=== PATIENT | female | born 1945 | race Caucasian/White ===

== ENCOUNTER 2019-12-27 11:36 | Outpatient (CLI) | payer MEDICARE, OTHER ==
--- NOTE | 2019-12-27 14:14 | DEXA Report ---
PROCEDURE: Dexa Spine and/or Hip INDICATIONS: OSTEOPOROSIS TECHNIQUE: Dual energy x-ray absorptiometry (DXA) was performed on a R17 System. Regions measur ed are the AP Spine, femoral neck, and if needed forearm. COMPARISON: None. FINDINGS: Lumbar Spine: Bone Mineral Density 0.986 g/cm/cm,T score -1.6. Left Hip: Bone Mineral Density 0.895 g/cm/cm,T score -0.9. Left Femoral Neck: Bone Mineral Density 0.783 g/cm/cm, T score -1.8. Impression: Osteopenia of the lumbar spine and left femoral neck. Patients with diagnosis of osteoporosis or osteopenia should have regular bone mineral density assess ment. For those eligible for Medicare, routine testing is allowed once every 2 years. Testing frequ ency can be increased for patients who have rapidly progressing disease or for those who are receivin g medical therapy to restore bone mass. Reviewed by: Teresita Genao MD on 12/27/2019 2:13 PM PDT Approved by: Teresita Genao MD on 12/27/2019 2:13 PM PDT Station ID: [id number]
== END 2019-12-27 11:37 | disposition home or self-care (01) ==
LOC: DI 11:36
PROVIDERS: ATTEND Internal Medicine
DX: M85.89 Other specified disorders of bone density and structure, multiple sites (principal)
CPT/HCPCS: 77080

== ENCOUNTER 2023-12-20 17:27 | Outpatient (CLI) | payer MEDICARE, OTHER ==
--- NOTE | 2023-12-20 21:52 | XRAY Report ---
PROCEDURE: Clavicle RT INDICATIONS: PAIN OF RIGHT SHOULDER JOINT TECHNIQUE: 2 views of the clavicle were acquired. COMPARISON: None. FINDINGS: Bones: No acute fractures or dislocations. No suspicious bony lesions. Severe glenohumeral osteoa rthrosis. Mild to moderate acromioclavicular joint osteoarthrosis. Soft tissues: No suspicious soft tissue calcifications. Surgical clips are seen in the right axill a. 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 Reviewed by: Loyd Escamilla MD on 12/20/2023 8:50 PM [facility] Approved by: Loyd Escamilla MD on 12/20/2023 8:50 PM [facility] Station ID: [id number]
--- NOTE | 2023-12-21 11:35 | XRAY Report ---
Shoulder 2+V RT HISTORY: 78 years of age, PAIN OF RIGHT SHOULDER JOINT TECHNIQUE: Shoulder 2+V RT COMPARISON: None. FINDINGS/IMPRESSION: The acromioclavicular joint is unremarkable. Small ossification about the superior glenoid, represent ing prior injury. Moderate degenerative changes of the glenohumeral joint with joint space narrowing. No acute fracture or dislocation. Extensive surgical clips project over the right axilla. Reviewed by: Kacy Landon MD on 12/21/2023 11:33 AM PDT Approved by: Kacy Landon MD on 12/21/2023 11:33 AM PDT Station ID: [id number]
--- NOTE | 2023-12-21 16:11 | XRAY Report ---
PROCEDURE: Cervical Spine 2-3V INDICATIONS: NECK PAIN TECHNIQUE: 3 view(s) of the cervical spine were acquired. COMPARISON: None. FINDINGS: Bones: No fractures or dislocations to the C7-T1 level. The lateral masses of C1 appear intact on t he odontoid view. No suspicious bony lesions. Trace retrolisthesis of C3 on C4, C4 on C5. Multileve l disc space narrowing is present, most severe at C4-5, C5-6, C6-7. Multilevel uncovertebral arthropa thy is present. Soft tissues: No prevertebral soft tissue swelling. IMPRESSION: Multilevel degenerative changes most severe at C4-5 through C6-7. Reviewed by: Debbi Castelan MD on 12/21/2023 4:10 PM PDT Approved by: Debbi Castelan MD on 12/21/2023 4:10 PM PDT Station ID: [id number]
== END 2023-12-20 17:28 | disposition home or self-care (01) ==
LOC: DI 17:27
PROVIDERS: ATTEND Nurse Practitioner Adult Health
DX: M19.011 Primary osteoarthritis, right shoulder (principal); M25.511 Pain in right shoulder; M54.2 Cervicalgia